=== PATIENT | female | born 1965 | race Caucasian/White ===

== ENCOUNTER 2017-06-19 10:35 | Emergency (ER) | payer MEDICAID ==
[2017-06-19 10:44] VITALS: BMI 28.9
[2017-06-19 10:48] VITALS: BP 117/73; PULSE 79; RESP 18; TEMP 98.1; O2SAT 98
--- NOTE | 2017-06-19 12:41 | C.PDOC ---
History Of Present Illness 51 year old female presents to ED for evaluation of left neck pain radiating to upper back and left shoulder for the last 3 days. Patient states that she woke up with the pain one day. Notes that pain is worse when turning her head and with movement. Notes taking Tylenol without significant relief. Denies headache , dizziness, weakness, numbness, or fever. Time Seen by Provider: 06/19/17 11:13 Chief Complaint (Nursing): Upper Extremity Problem/Injury History Per: Patient History/Exam Limitations: no limitations Onset/Duration Of Symptoms: Days (3) Current Symptoms Are (Timing): Still Present Quality: "Pain" Exacerbating Factor(s): Movement Recent travel outside of the [place]: No Additional History Per: Patient Past Medical History Reviewed: Historical Data, Nursing Documentation, Vital Signs Vital Signs: Last Vital Signs Temp 98.1 F 06/19/17 10:44 Pulse 79 06/19/17 10:44 Resp 18 06/19/17 10:44 BP 117/73 06/19/17 10:44 Pulse Ox 98 06/19/17 13:21 - Medical History PMH: Gastritis Denies: Chronic Kidney Disease - [facility] Procedures ESOPHAGOGASTRODUODENOSCOPY [EGD] W/CLOSED BIOPSY (12/12/13) Family History: States: Unknown Family Hx - Social History Hx Alcohol Use: No Hx Substance Use: No - Immunization History Hx Tetanus Toxoid Vaccination: No Hx Influenza Vaccination: No Hx Pneumococcal Vaccination: No Review Of Systems Except As Marked, All Systems Reviewed And Found Negative. Constitutional: Negative for: Fever, Chills Musculoskeletal: Positive for: Neck Pain, Shoulder Pain (left), Back Pain Skin: Negative for: Rash, Bruising Neurological: Negative for: Weakness, Numbness, Headache, Dizziness Physical Exam - Physical Exam Appears: Well, Non-toxic, No Acute Distress Skin: Normal Color, Warm, Dry Head: Atraumatic, Normacephalic Eye(s): bilateral: Normal Inspection, EOMI Oral Mucosa: Moist Neck: Normal ROM, No Midline Cervical Tenderness, Paracervical Tenderness (left paracervical muscle and left trapezius muscle tenderness), No Step Off Deformity , Supple Chest: Symmetrical Cardiovascular: Rhythm Regular, No Murmur Respiratory: Normal Breath Sounds, No Rales, No Rhonchi, No Wheezing Back: Normal Inspection, No Vertebral Tenderness, No Decreased ROM Extremity: Normal ROM (to all extremities), No Tenderness, No Deformity, No Swelling Pulses: Left Radial: Normal, Right Radial: Normal Neurological/Psych: Oriented x3, Normal Speech Gait: Steady ED Course And Treatment O2 Sat by Pulse Oximetry: 98 (RA) Pulse Ox Interpretation: Normal Medical Decision Making Medical Decision Making: Impression: neck and back carmella Plan: * Flexeril * Toradol Reassess: On re-evaluation, patient reports feeling better, and is able to turn her head without significant pain. Patient is being discharged home with instructions to follow up with PMD in 1-2 days for further evaluation. Disposition Counseled Patient/Family Regarding: Diagnosis, Need For Followup, Rx Given - Disposition Referrals: Shaik Fuentes MD [Staff Provider] - Disposition: HOME/ ROUTINE Disposition Time: 12:40 Condition: STABLE Additional Instructions: You can apply heat to area Take Tylenol 500mg for any pain Take Ibuprofen as needed for pain every 6-8 hours, with food to not upset stomach Take Flexeril every 8 hours as needed for muscular pain and spasm, caution may cause drowsiness Prescriptions: Cyclobenzaprine [Cyclobenzaprine HCl] 10 mg PO TID #21 tab Ibuprofen [Motrin] 600 mg PO Q8 #30 tab Instructions: Upper Back Pain (DC), Cervical Muscle Strain Forms: [facility] (Portuguese) - POA Present On Arrival: None - Clinical Impression Clinical Impression: Neck strain, Upper back pain - PA / CUSTOMER SERVICE REPRESENTATIVE TEACHER / Resident Statement MD/DO has reviewed & agrees with the documentation as recorded. - Scribe Statement The provider has reviewed the documentation as recorded by the Yashibmaverick Bryan All medical record entries made by the Yashibmaverick were at my direction and personally dictated by me. I have reviewed the chart and agree that the record accurately reflects my personal performance of the history, physical exam, medical decision making, and the department course for this patient. I have also personally directed, reviewed, and agree with the discharge instructions and disposition.
== END 2017-06-19 13:00 | disposition home or self-care (01) ==
LOC: C.ER 10:35
DX: S16.1XXA Strain of muscle, fascia and tendon at neck level, initial encounter (principal); X58.XXXA Exposure to other specified factors, initial encounter; M54.89 Other dorsalgia
CPT/HCPCS: 96372; 99284; J1885